=== PATIENT | male | born 1975 | race Caucasian/White ===

== ENCOUNTER 2022-07-02 11:24 | Emergency (ER) | payer MEDICAID ==
[~2022-07-02] VITALS: Ht 167.6 cm; Wt 77.0 kg
[2022-07-02] MEDS ORDERED: IBUPROFEN 400MG TABLET PO ONE ×2 (16:15)
[2022-07-02 16:16] VITALS: BP 118/61
[2022-07-02] MEDS ORDERED: IBUP-2028 MT (17:31)
== END 2022-07-02 17:59 | disposition home or self-care (01) ==
LOC: ER 11:24
DX: M25.562 Pain in left knee (principal); M25.561 Pain in right knee
CPT/HCPCS: 73560; 99283

== ENCOUNTER 2022-11-25 16:16 | Emergency (ER) | payer SELFPAY ==
[~2022-11-25] VITALS: Ht 167.6 cm; Wt 69.0 kg
[~2022-11-25 16:16] MED LIST: IBUP-2028 MT
[2022-11-25 16:33] VITALS: BP 141/93
[2022-11-25] MEDS ORDERED: SODIUM CHLORIDE 0.9% 1,000 ML IV ONE (19:15)
[2022-11-25 19:22] LABS: BASOPHILS % 1.2 % (0.0-2.0); HEMATOCRIT. 44.2 % (42.0-52.0); HEMOGLOBIN. 15.5 g/dL (14.0-18.0); LYMPHOCYTES % 24.9 % (20.0-50.0); MEAN CORPUSCULAR HEMOGLOBIN 31.3 pg (28.0-32.0); MEAN CORPUSCULAR VOLUME 89.3 fL (80.0-94.0); MEAN PLATELET VOLUME 9.1 fl (7.4-10.4); NEUTROPHILS % 64.9 % (40.0-76.0); PLATELET 262 x1000/uL (130-400); RED BLOOD CELL COUNT 4.96 mill/uL (4.7-6.1); RED CELL DISTRIBUTION WIDTH 13.2 % (11.6-14.6)
[2022-11-25 19:29] LABS: CLARITY URINE CLEAR (CLEAR); COLOR URINE YELLOW (YELLOW); KETONES URINE 2+ (NEGATIVE); LEUKOCYTE ESTERASE URINE NEGATIVE (NEGATIVE); NITRITE URINE NEGATIVE (NEGATIVE); OCCULT BLOOD URINE NEGATIVE (NEGATIVE); PH URINE 5.5 (4.5-8.0); PROTEIN URINE NEGATIVE (NEGATIVE); SPECIFIC GRAVITY URINE 1.042 (1.005-1.030); UROBILINOGEN URINE 0.2 E.U./dL (0.2-1.0)
[2022-11-25 19:33] LABS: CHLORIDE 97 mEq/L (98-107)
[2022-11-25 19:41] LABS: BETA HYDROXYBUTYRATE 0.9 mMol/L (0.0-0.3)
[2022-11-25] MEDS ORDERED: METF-414 PO (20:18)
[2022-11-25] MEDS ORDERED: METFORMIN HCL 500MG TABLET PO NR (21:00)
== END 2022-11-25 22:45 | disposition home or self-care (01) ==
LOC: ER 16:16
DX: E11.65 Type 2 diabetes mellitus with hyperglycemia (principal); I10 Essential (primary) hypertension
CPT/HCPCS: 36415; 80053; 81003; 82010; 82962; 85025; 99283

== ENCOUNTER 2023-10-08 10:06 | Emergency (ER) | payer SELFPAY ==
[~2023-10-08] VITALS: Ht 167.6 cm; Wt 70.0 kg
[~2023-10-08 10:06] MED LIST changes: +METF-414 PO
[2023-10-08 10:08] VITALS: O2SAT 98
[2023-10-08 10:50] LABS: BASOPHILS % 1.1 % (0.0-2.0); DIFFERENTIAL COMMENT 0; EOSINOPHILS % 3.3 % (0.0-5.0); HEMATOCRIT. 46.4 % (42.0-52.0); HEMOGLOBIN. 16.6 g/dL (14.0-18.0); LYMPHOCYTES % 40.2 % (20.0-50.0); MEAN CORPUSCULAR HGB CONC 35.7 g/dL (31.0-37.0); MEAN CORPUSCULAR VOLUME 89.6 fL (80.0-94.0); MEAN PLATELET VOLUME 9.4 fl (7.4-10.4); MONOCYTES % 6.3 % (2.0-8.0); NEUTROPHILS % 49.1 % (40.0-76.0); PLATELET 241 x1000/uL (130-400); RED BLOOD CELL COUNT 5.18 mill/uL (4.7-6.1); RED CELL DISTRIBUTION WIDTH 13.7 % (11.6-14.6)
[2023-10-08 11:06] LABS: CLARITY URINE CLEAR (CLEAR); COLOR URINE YELLOW (YELLOW); SPECIFIC GRAVITY URINE <1.005 (1.005-1.030)
[2023-10-08 11:07] LABS: GLUCOSE URINE 3+ (NEGATIVE); KETONES URINE NEGATIVE (NEGATIVE); LEUKOCYTE ESTERASE URINE NEGATIVE (NEGATIVE); NITRITE URINE NEGATIVE (NEGATIVE); OCCULT BLOOD URINE NEGATIVE (NEGATIVE); PH URINE 6.5 (4.5-8.0); PROTEIN URINE NEGATIVE (NEGATIVE)
[2023-10-08 11:08] LABS: UROBILINOGEN URINE 0.2 E.U./dL (0.2-1.0)
[2023-10-08 11:09] LABS: BACTERIA URINE NONE SEEN; RBC URINE 0-2 /hpf (0-2); SQUAMOUS EPITHELIAL CELL URINE NONE SEEN /lpf (RARE/1+); WBC URINE 0-2 /hpf (0-2); YEAST URINE NONE SEEN
[2023-10-08 11:15] LABS: ALANINE AMINOTRANSFERASE 47 IU/L (10-49); ALBUMIN 3.8 g/dL (3.2-4.8); ASPARTATE AMINOTRANSFERASE 27 IU/L (<34); BILIRUBIN TOTAL 0.8 mg/dL (0.1-1.0); CALCIUM 8.9 mg/dL (8.7-10.4); CARBON DIOXIDE 24 mEq/L (21-32); CHLORIDE 99 mEq/L (98-107); CREATININE 1.2 mg/dL (0.6-1.3); POTASSIUM 4.8 mEq/L (3.5-5.1); PROTEIN TOTAL 6.1 g/dL (6.0-8.3); SODIUM 131 mEq/L (136-145); UREA NITROGEN BLOOD 14 mg/dL (9-23)
[2023-10-08 11:58] LABS: GLUCOSE 688 mg/dL (70-105)
[2023-10-08] MEDS ORDERED: INSULIN REGULAR (HUMULIN R) 300UNITS/3ML VIAL IV ONE (13:00)
[2023-10-08] MEDS ORDERED: SODIUM CHLORIDE 0.9% 2,000 ML IV ONE (13:00)
[2023-10-08] MEDS ORDERED: METFORMIN HCL 500MG TABLET PO ONE (13:15)
[2023-10-08] MEDS ORDERED: GLIPIZIDE XL 2.5MG TABLET PO ONE (14:15)
[2023-10-08] MEDS ORDERED: METF-416 MT (16:24)
[2023-10-08 17:45] VITALS: BP 123/87; PULSE 72; RESP 16; TEMP 98.2
== END 2023-10-08 17:46 | disposition home or self-care (01) ==
LOC: ER 10:06
DX: E11.65 Type 2 diabetes mellitus with hyperglycemia (principal); I10 Essential (primary) hypertension
CPT/HCPCS: 80053; 81003; 82962; 85025; 36415; 96360; 96361; 99283; J7030; Z7610 ×2

== ENCOUNTER 2025-07-21 10:42 | Emergency (ER) | payer SELFPAY ==
[~2025-07-21] VITALS: Ht 170.2 cm; Wt 75.0 kg
[~2025-07-21 10:42] MED LIST changes: +METF-416 MT
[2025-07-21 10:49] VITALS: TEMP 36.8; O2SAT 98
[2025-07-21] MEDS: MAGNESIUM/ALUMINUM HYDROXIDE/SIMETHICONE 30ML UDC PO ONE (11:51)
[2025-07-21] MEDS: KETOROLAC 15MG/ML VIAL IM ONE (11:51)
[2025-07-21] MEDS: ONDANSETRON HCL 4MG TABLET PO ONE (11:51)
[2025-07-21] MEDS: CYCLOBENZAPRINE 10MG TABLET PO ONE (11:51)
[2025-07-21] MEDS: ACETAMINOPHEN 325MG TABLET PO ONE (11:52)
[2025-07-21 12:34] LABS: BASOPHILS % 0.9 % (0.0-2.0); EOSINOPHILS % 1.3 % (0.0-5.0); HEMATOCRIT. 43.1 % (42.0-52.0); HEMOGLOBIN. 15.2 g/dL (14.0-18.0); LYMPHOCYTES % 24.0 % (20.0-50.0); MEAN PLATELET VOLUME 7.4 fl (7.4-10.4); MONOCYTES % 8.3 % (2.0-8.0); NEUTROPHILS % 65.5 % (40.0-76.0); PLATELET 338 x1000/uL (130-400); RED BLOOD CELL COUNT 4.85 mill/uL (4.7-6.1); RED CELL DISTRIBUTION WIDTH 14.0 % (11.6-14.6)
[2025-07-21 12:49] LABS: CREATININE 0.9 mg/dL (0.6-1.3); UREA NITROGEN BLOOD 16 mg/dL (9-23)
[2025-07-21 12:50] LABS: ASPARTATE AMINOTRANSFERASE 18 IU/L (<34)
[2025-07-21 12:51] LABS: BILIRUBIN DIRECT 0.2 mg/dL (<=3.0); BILIRUBIN TOTAL 0.6 mg/dL (0.1-1.0); PROTEIN TOTAL 6.9 g/dL (6.0-8.3)
[2025-07-21] MEDS ORDERED: LIDO-53 TP (13:29)
[2025-07-21] MEDS ORDERED: NAPR-1494 MT (13:29)
[2025-07-21] MEDS ORDERED: ACET-2708 MT (13:29)
[2025-07-21] MEDS ORDERED: CYCL10TA21 MT (13:29)
[2025-07-21 13:46] VITALS: BP 118/79; PULSE 82; RESP 18; O2SAT 100
== END 2025-07-21 13:48 | disposition home or self-care (01) ==
LOC: EDBD → ER 10:42
DX: M54.40 Lumbago with sciatica, unspecified side (principal); R11.0 Nausea; E11.9 Type 2 diabetes mellitus without complications; I10 Essential (primary) hypertension; Z79.1 Long term (current) use of non-steroidal anti-inflammatories (NSAID); Z79.84 Long term (current) use of oral hypoglycemic drugs
CPT/HCPCS: 80076; 80048; 85025; 36415; 72100; 96372; 99284; Q0162; J1885; Z7610

== ENCOUNTER 2025-08-26 09:31 | Emergency (ER) | payer MEDICAID ==
[~2025-08-26] VITALS: Ht 170.2 cm; Wt 70.0 kg
[~2025-08-26 09:31] MED LIST changes: +ACET-2708 MT; +CYCL10TA21 MT; +LIDO-53 TP; +NAPR-1494 MT
[2025-08-26 09:40] VITALS: TEMP 36.8; O2SAT 98
[2025-08-26] MEDS: TETRACAINE 0.5% OPHTH DROPS 4ML RIGHTEYE ONE (10:22)
[2025-08-26] MEDS: FLUORESCEIN SODIUM 1MG/STRIP RIGHTEYE ONE (10:22)
[2025-08-26] MEDS ORDERED: SULF15DR26 RIGHTEYE (11:24)
[2025-08-26] MEDS ORDERED: TOPUD MT (11:24)
[2025-08-26] MEDS ORDERED: IBUP-1523 MT (11:24)
[2025-08-26 11:41] VITALS: BP 108/73; PULSE 63; RESP 19; O2SAT 99
== END 2025-08-26 11:45 | disposition home or self-care (01) ==
LOC: ER 09:31
DX: S05.01XA Injury of conjunctiva and corneal abrasion without foreign body, right eye, initial encounter (principal); Z79.84 Long term (current) use of oral hypoglycemic drugs; Z79.1 Long term (current) use of non-steroidal anti-inflammatories (NSAID); I10 Essential (primary) hypertension; E11.9 Type 2 diabetes mellitus without complications; X58.XXXA Exposure to other specified factors, initial encounter; Y93.H2 Activity, gardening and landscaping; Y92.89 Other specified places as the place of occurrence of the external cause; Y99.8 Other external cause status
CPT/HCPCS: 99283; Z7610 ×2